=== PATIENT | female | born 1980 | race Caucasian/White ===

== ENCOUNTER → 2021-08-17 | Outpatient (CLI) | payer OTHER ==
[~2021-08-17] MED LIST: CEPH500 PO; HYDACE5 PO; LEVFLO250 PO; OXYACE5T PO; PROM25 PO; SULTRIDS PO
[2021-08-18 15:10] LABS: HPV 16 Negative (Negative); HPV 18 Negative (Negative); HPV OTHER HR TYPES Negative (Negative)
== END ==
LOC: LAB 13:18 → LAB SHORT 13:18
PROVIDERS: Family Medicine
DX: Z01.419 Encounter for gynecological examination (general) (routine) without abnormal findings (principal)
CPT/HCPCS: 87624; G0123

== ENCOUNTER 2024-05-13 07:29 | Inpatient (IN) | payer OTHER ==
[~2024-05-13] VITALS: Ht 154.9 cm; Wt 57.7 kg
[2024-05-13] VITALS (16 sets, daily range): BP systolic 94–112; BP diastolic 47–71
[2024-05-13] MEDS ORDERED: Ketorolac Tromethamine 30mg Vial IV ONE (07:50)
[2024-05-13] MEDS ORDERED: NS 1,000 ML IV SCH ×3 (07:50→15:45)
[2024-05-13] MEDS ORDERED: Ondansetron HCl 2 MG / ML 2ML Vial IV ONE (07:50)
[2024-05-13 07:59] LABS: BASOPHILS ABSOLUTE AUTO 0.04 K/mm3 (0.00-0.23); BASOPHILS PERCENT AUTO 1 % (0-2); EOSINOPHILS ABSOLUTE AUTO 0.18 K/mm3 (0.00-0.68); EOSINOPHILS PERCENT AUTO 2 % (0-6); Hematocrit 38.3 % (33.0-51.0); Hemoglobin 12.6 g/dL (11.5-16.0); IMMATURE GRAN ABSOLUTE AUTO 0.01 K/mm3 (0.00-0.10); IMMATURE GRAN PERCENT AUTO 0 % (0-1); LYMPHOCYTES ABSOLUTE AUTO 2.69 K/mm3 (0.84-5.20); LYMPHOCYTES PERCENT AUTO 35 % (21-46); MONOCYTES ABSOLUTE AUTO 0.69 K/mm3 (0.16-1.47); MONOCYTES PERCENT AUTO 9 % (4-13); Mean Corpuscular HGB 29.1 pg (26.0-34.0); Mean Corpuscular HGB Conc 32.9 g/dL (31.5-36.5); Mean Corpuscular Volume 89 fL (80-100); NEUTROPHILS ABSOLUTE AUTO 4.14 K/mm3 (1.96-9.15); NEUTROPHILS PERCENT AUTO 54 % (41-73); Platelet Count 237 K/mm3 (150-400); RDW Coefficient Variation 13.9 % (11.7-14.2); RDW Standard Deviation 45.3 fL (35.1-46.3); Red Blood Cell Count 4.33 M/mm3 (3.80-5.20); White Blood Cell Count 7.75 K/mm3 (4.00-11.30)
[2024-05-13 08:11] LABS: Alanine Aminotransfer (ALT/SGP 15 U/L (12-78); Albumin, Blood 3.4 g/dL (3.4-5.0); Albumin/Globulin Ratio 0.8 (0.8-1.8); Alk Phos 78 U/L (50-136); Anion Gap 11 mmol/L (3-11); Aspartate Aminotrans (AST/SGOT 18 U/L (12-37); Bilirubin, Direct 0.1 mg/dL (0.0-0.3); Bilirubin, Indirect 0.3 mg/dL (0.1-0.7); Bilirubin, Total 0.4 mg/dL (0.1-1.0); Blood Urea Nitrogen 19 mg/dL (8-24); C-REACTIVE PROTEIN, EXT RANGE <0.290 mg/dL (0.000-0.300); CO2, Blood 21 mmol/L (21-32); Calcium, Blood 8.7 mg/dL (8.5-10.1); Chloride, Blood 111 mmol/L (98-108); Creatinine, Blood 0.87 mg/dL (0.40-1.00); Glomerular Filtration Rate 83 (60-); Glucose, Blood 123 mg/dL (70-99); Potassium, Blood 3.6 mmol/L (3.5-5.5); Sodium, Blood 139 mmol/L (136-145); Total Protein, Blood 7.4 g/dL (6.4-8.2)
[2024-05-13 08:46] LABS: Influenza A, PCR NEGATIVE (NEGATIVE); Influenza B, PCR NEGATIVE (NEGATIVE); Resp Syncytial Virus, PCR NEGATIVE (NEGATIVE); SARS-Cov-2 (COVID-19) PCR, MMC NEGATIVE (NEGATIVE)
[2024-05-13] MEDS ORDERED: DiphenhydrAMINE HCl 50 MG/ML 1ML Vial IV ONE (09:00)
[2024-05-13] MEDS ORDERED: Metoclopramide HCl 5MG / ML 2ML Vial IV ONE (09:00)
[2024-05-13] MEDS ORDERED: Aspirin 325 MG Tab PO ONE (11:35)
[2024-05-13] MEDS ORDERED: LORazepam 1 MG Tab PO ONE (12:05)
[2024-05-13 12:58] LABS: Anti-Xa UFH, PHA Monitoring <0.10 IU/mL; International Normalized Ratio 1.02; Prothrombin Time Results 10.9 Sec (9.7-11.5)
[2024-05-13] MEDS ORDERED: Heparin Sodium 5000 Units/ML 1ML MDV IV ONE (13:05)
[2024-05-13] MEDS ORDERED: Heparin Sodium,Porcine/0.5 NS 500 ML IV SCH (13:05)
[2024-05-13] MEDS ORDERED: LORazepam 1 MG Tab PO PRN (13:20)
[2024-05-13] MEDS ORDERED: HYDROmorphone HCl/Pf 1MG SYR IV PRN (13:20)
[2024-05-13] MEDS ORDERED: Prochlorperazine Edisylate 10 mg Vial IV PRN (13:25)
[2024-05-13] MEDS ORDERED: Nicotine 7 MG PATCH TOP ONE (13:25)
[2024-05-13] MEDS ORDERED: Zolpidem Tartrate 5 MG Tab PO PRN (13:25)
[2024-05-13] MEDS ORDERED: Acetaminophen 325 MG TABLET PO PRN (13:25)
[2024-05-13] MEDS ORDERED: Nitroglycerin 0.4 MG SUBL SL PRN (13:25)
[2024-05-13 13:55] LABS: CHOL/HDL RATIO 1.9; Cholesterol 148 mg/dL (50-200); HDL Cholesterol 76 mg/dL (>39); LDL/HDL RATIO 0.8; Low Density Lipoprotein Chol 59 mg/dL (0-110); Triglycerides 66 mg/dL (30-160); Very Low Density Lipoprot Chol 13 mg/dL (6-32)
[2024-05-13] MEDS ORDERED: Atorvastatin 40 MG Tab PO SCH (14:00)
[2024-05-13] MEDS ORDERED: Heparin Sodium 1000 Units/ML 10ML MDV ONE (14:33)
[2024-05-13] MEDS ORDERED: NS 2,000 ML IV ONE (14:33)
[2024-05-13] MEDS ORDERED: Verapamil HCL 2.5 MG/ML 2ML Injection ONE (14:33)
[2024-05-13] MEDS ORDERED: NS 250 ML IV ONE (14:34)
[2024-05-13] MEDS ORDERED: Midazolam HCl 1MG / ML 2ML Vial ONE (14:40)
[2024-05-13] MEDS ORDERED: FentaNYL Citrate 50 MCG/ML 2 ML Injection ONE (14:40)
[2024-05-13] MEDS ORDERED: Clopidogrel Bisulfate 300 MG Cap ONE (15:38)
--- NOTE | 2024-05-13 16:52 | NUR ---
Upon arrival to PCU, pt denies any pain/discomfort. Echocardiogram was done just following her admission. TR band on the right wrist is in place, reported 13 cc air in it. No bleeding, no hematoma, no swelling, no bruising. No pain/discomfort/numnbess/tingling in the right hand or arm. Spo2 measured on right index finger is 100%. Respirations even and unlabored.
[2024-05-13] MEDS ORDERED: URITRAX47 GM PO (17:22)
--- NOTE | 2024-05-13 18:26 | NUR ---
3 CC AIR removed from TR band. Site remains as it was at last assessment. Pt ambulatory to bathroom to void, RN standby assist for IV pole, cords, etc. Denies pain/dizzyness/dyspnea.
--- NOTE | 2024-05-13 18:38 | NUR ---
3 cc air removed from TR band. Right wrist site remains WNL for recovery.
--- NOTE | 2024-05-13 18:54 | NUR ---
TR band fully deflated; site remains as it was before without any signs of bleeding. Pt states no discomfort. TR band remains in place; instructed pt that it will be reomved after 1 hour, but keeping white immobilizer board in place for 24 hours total to prevent any movement or activity which may lead to complications at the site. She verbalized understanding.
--- NOTE | 2024-05-13 21:01 | NUR ---
ALERT AND ORIENTED X 4. HAS BEEN SLEEPING, REAPS EVEN UNTIL NOW. DENIES PAIN. TR BAND REMOVED AFTER DEFLATED. STERILE TECHNIQUE. CLEAR COVERING PLACED AND ARM BOARD IN USE. VSS. AFFECT CHEERFUL. CALL LIGHT IN REACH.
--- NOTE | 2024-05-13 21:24 | NUR ---
MD AT BEDSIDE TO ASSESS PT AND DISCUSS PLAN. SEE MD NOTATIONS
--- NOTE | 2024-05-13 21:59 | NUR ---
DR LOPEZ IN TO SEE PT. DC'D IVF AND ORDERED A TROP LEVEL. PT RESTING QUIETLY. NO NOTED S/S ACUTE DISTRESS. CALL LIGHT IN REACH
--- NOTE | 2024-05-13 23:55 | NUR ---
TROP LEVEL CALLED TO FLOOR FROM THE LAB: 9294 UP FROM 2097 EARLIER. ASYMPTOMATIC. TELE: SR AT 71. 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 CALL LIGHT IN REACH
--- NOTE | 2024-05-14 00:34 | NUR ---
MD WAS NOTIFIED OF ELEVATED TROP LEVEL (6190 FROM 2097 EARLIER). REVIEWED CHART AND ORDERED TO DC ALL FUTURE TROP LEVELS HER ELEVATED LEVELS WERE DUE TO RECENT PROCEDURE.
[2024-05-14 00:58] VITALS: BP 94/68
--- NOTE | 2024-05-14 03:34 | NUR ---
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 WAS RECEIVING NS AT 200 ML/HR AT SHIFT START, DR LOPEZ IN TO SEE/ASSESS PT AND DC'D IVF - INCLUDING THE 75 ML/HR ORDERED AFTER THE 200 ML FINISHED. VOICED DUE TO HER BEING ABLE TO EAT AND DRINK. BUT ORDERED A TROP LEVEL AT THAT TIME. LAB CALLED WITH CRITICAL LEVEL TROP - 6190 UP FOM 2097 EARLIER. 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 HAS BEEN RESTING QUIETLY WITH FEW INTERRUPTIONS. ASYMPTOMATIC. ABLE TO REPOSITION SELF IN BED WITHOUT ASSIST FOR COMFORT AND SKIN MAINTENANCE. CALL LIGHT IN REACH, RAILS UP X 2 AND BED IN LOW POSITION FOR SAFETY. WILL CONT TO MONITOR.
[2024-05-14 04:26] VITALS: BP 107/58
[2024-05-14 07:53] VITALS: BP 121/59
--- NOTE | 2024-05-14 08:50 | NUR ---
Assumed care of pt at 0700. Bedside report received from Mark MAHARAJ. Pt A&O x 4. Independent in room. Right TR site dressed with clear tegaderm. Free of drainage, bruising. Color, sensation, pulses, capillary refill equal BUE. SR per monitor. BP stable. Denies chest pain.
[2024-05-14] MEDS ORDERED: Aspirin 81 MG Chew PO SCH (09:00)
[2024-05-14] MEDS ORDERED: Aspirin 81 MG TabEC PO SCH (09:00)
[2024-05-14] MEDS ORDERED: Clopidogrel Bisulfate 75 MG Tab PO SCH (09:00)
[2024-05-14] MEDS ORDERED: ASPI81CH PO (11:24)
[2024-05-14] MEDS ORDERED: ATOR40TA PO (11:30)
[2024-05-14] MEDS ORDERED: CLOP75 PO (11:30)
[2024-05-14 12:04] VITALS: BP 112/69
--- NOTE | 2024-05-14 12:39 | NUR ---
Pt discharged from unit at 1210. Education given to pt and spouse. Discussed importance of smoking cessation. Pt discussed goal to stop drinking energy drinks. Discussed low salt, low fat diet. Discussed R radial site precautions. Discussed new prescribed meds and side effects. Pt verbalizes understanding of education provided. Med orders sent to Krist[facility] on [address]. IV and tele discontinued.
== END 2024-05-14 12:20 | disposition home or self-care (01) | DRG 282 ==
LOC: ER 07:29 → PCU 14:48
PROVIDERS: Student in an Organized Health Care Education/Training Program; ADMIT Internal Medicine
PROC: B2111ZZ Fluoroscopy of Multiple Coronary Arteries using Low Osmolar Contrast (ICD-10-PCS; principal; 2024-05-13)
PROC: 4A033BC Measurement of Arterial Pressure, Coronary, Percutaneous Approach (ICD-10-PCS; 2024-05-13)
DX: I21.4 Non-ST elevation (NSTEMI) myocardial infarction (principal); I25.10 Atherosclerotic heart disease of native coronary artery without angina pectoris; F41.9 Anxiety disorder, unspecified; Z88.1 Allergy status to other antibiotic agents; Z79.899 Other long term (current) drug therapy; Z87.440 Personal history of urinary (tract) infections; Z98.51 Tubal ligation status; Z98.890 Other specified postprocedural states; Z87.891 Personal history of nicotine dependence
CPT/HCPCS: 0241U; 36415; 71046; 71260; 76705; 76937; 80048; 80061; 80076; 83690; 84145; 84484; 85025; 85379; 85520; 85610; 86140; 93005; 93010; 93306; 93454; 93571; 94760; 96361; 96374-59; 96375; 99152; 99285-25; A9270; C1769; C1887; C1894; J1200; J1644; J1885; J2250; J2405; J2765; J3010; J7030; J7050; Q9967

== ENCOUNTER 2024-10-01 10:01 | Emergency (ER) | payer OTHER ==
[~2024-10-01] VITALS: Ht 157.5 cm; Wt 58.1 kg
[~2024-10-01 10:01] MED LIST changes: +ASPI81CH PO; +ATOR40TA PO; +CLOP75 PO; +URITRAX47 GM PO
[2024-10-01 10:42] LABS: BASOPHILS ABSOLUTE AUTO 0.03 K/mm3 (0.00-0.23); BASOPHILS PERCENT AUTO 0 % (0-2); EOSINOPHILS ABSOLUTE AUTO 0.15 K/mm3 (0.00-0.68); EOSINOPHILS PERCENT AUTO 2 % (0-6); Hematocrit 38.3 % (33.0-51.0); Hemoglobin 12.8 g/dL (11.5-16.0); IMMATURE GRAN ABSOLUTE AUTO 0.02 K/mm3 (0.00-0.10); IMMATURE GRAN PERCENT AUTO 0 % (0-1); LYMPHOCYTES PERCENT AUTO 25 % (21-46); MONOCYTES PERCENT AUTO 10 % (4-13); Mean Corpuscular HGB 30.1 pg (26.0-34.0); Mean Corpuscular HGB Conc 33.4 g/dL (31.5-36.5); Mean Corpuscular Volume 90 fL (80-100); Mean Platelet Volume 11.3 fL (9.1-12.4); NEUTROPHILS ABSOLUTE AUTO 4.24 K/mm3 (1.96-9.15); NEUTROPHILS PERCENT AUTO 62 % (41-73); Platelet Count 220 K/mm3 (150-400); RDW Coefficient Variation 14.4 % (11.7-14.2); RDW Standard Deviation 47.6 fL (35.1-46.3); Red Blood Cell Count 4.25 M/mm3 (3.80-5.20); White Blood Cell Count 6.84 K/mm3 (4.00-11.30)
[2024-10-01 11:32] LABS: Albumin, Blood 3.4 g/dL (3.4-5.0); Albumin/Globulin Ratio 0.8 (0.8-1.8); Bilirubin, Total 0.5 mg/dL (0.1-1.0); Bun/Creatinine Ratio 24.3 (12.0-20.0); Calcium, Blood 8.9 mg/dL (8.5-10.1); Creatinine, Blood 0.78 mg/dL (0.40-1.00); Globulin, Blood 4.2 g/dL (2.2-4.0); Potassium, Blood 3.6 mmol/L (3.5-5.5); Total Protein, Blood 7.6 g/dL (6.4-8.2)
[2024-10-01 14:47] VITALS: BP 116/57
== END 2024-10-01 15:01 | disposition home or self-care (01) ==
LOC: ER 10:01
PROVIDERS: Physician Assistant
DX: R07.89 Other chest pain (principal); Z79.82 Long term (current) use of aspirin; Z79.02 Long term (current) use of antithrombotics/antiplatelets; Z88.1 Allergy status to other antibiotic agents; Z79.899 Other long term (current) drug therapy
CPT/HCPCS: 71046; 80053; 83690; 84484; 85025; 93005; 93010; 99285-25